=== PATIENT | female | born 1955 | race Caucasian/White ===

== ENCOUNTER → 2018-01-23 | Outpatient (CLI) | payer OTHER ==
[2018-01-23 07:47] LABS: Basophils % (A) 0 %; Eosinophils # (A) 0.1 k/uL (0-0.7); Eosinophils % (A) 3 %; HCT 39.6 % (34.0-46.0); HGB 13.1 gm/dL (11.4-16.0); Lymphocytes # (A) 1.7 k/uL (1.0-4.8); Lymphocytes % (A) 32 %; MCH 30.8 pg (25.0-35.0); MCV 93.5 fL (80.0-100.0); Mean Platelet Volume 6.7; Monocytes # (A) 0.3 k/uL (0-1.0); Monocytes % (A) 5 %; Neutrophils # (A) 3.2 k/uL (1.3-7.7); Neutrophils % (A) 59 %; Platelet Count 218 k/uL (150-450); RBC 4.24 m/uL (3.80-5.40); RDW 12.3 % (11.5-15.5); WBC 5.4 k/uL (3.8-10.6)
[2018-01-23 08:03] LABS: ALT 22 U/L (9-52); AST 18 U/L (14-36); Albumin 3.9 g/dL (3.5-5.0); Alkaline Phosphatase 63 U/L (38-126); Anion Gap 8 mmol/L; Blood Urea Nitrogen 13 mg/dL (7-17); Calcium 9.1 mg/dL (8.4-10.2); Carbon Dioxide 30 mmol/L (22-30); Chloride 105 mmol/L (98-107); Cholesterol 203 mg/dL (<200); Creatine Kinase 84 U/L (30-135); Glucose 96 mg/dL (74-99); HDL Cholesterol 53 mg/dL (40-60); LDL Cholesterol,Calculated 131 mg/dL (0-99); Magnesium 2.2 mg/dL (1.6-2.3); Potassium 4.2 mmol/L (3.5-5.1); Sodium 143 mmol/L (137-145); Total Bilirubin 0.3 mg/dL (0.2-1.3); Total Protein 6.1 g/dL (6.3-8.2); Triglycerides 94 mg/dL (<150)
--- NOTE | 2018-01-23 10:45 | CT ---
EXAMINATION TYPE: CT chest w con DATE OF EXAM: 01/23/2018 COMPARISON: NONE HISTORY: COPD with acute exacerbation CT DLP: 122.10 mGycm, Automated exposure control for dose reduction was used. CONTRAST: Performed injected with 100 ml mL of Isovue 300. TECHNIQUE: Axial images were obtained at 5 mm thick sections. Reconstructed images are reviewed on [employer] computer in the coronal plane. FINDINGS: Portion of the thyroid visualized is normal. There is some vague groundglass opacity within the mid upper left lung field. Series 4 image 19. Diff use emphysematous changes are evident. Suspicious masses are not identified. No enlarged mediastinal or hilar adenopathy is evident. The ascending aorta diameter at the level o f the main pulmonary artery is 2.7 cm. The main pulmonary artery diameter at the bifurcation is 2.[address] sections are obtained through the upper abdomen. Abdomen is essentially unremarkable. IMPRESSIONS: 1. COPD.
[2018-01-23 16:12] LABS: Iron Saturation 28.28 (12.00-45.00)
== END | disposition home or self-care (01) ==
LOC: RADCTMAIN 06:55
PROVIDERS: ATTEND Nurse Practitioner Family
DX: J44.9 Chronic obstructive pulmonary disease, unspecified (principal); Z00.00 Encounter for general adult medical examination without abnormal findings; G47.62 Sleep related leg cramps; E78.5 Hyperlipidemia, unspecified
CPT/HCPCS: 80061; 80053; 82607; 82550; 83540; 83550; 83735; 84443; 85025; 82306; 71260; 36415; Q9967

== ENCOUNTER → 2018-09-24 | Outpatient (CLI) | payer MEDICARE ==
[2018-09-24 10:45] LABS: Basophils % (A) 0 %; Eosinophils # (A) 0.1 k/uL (0-0.7); Eosinophils % (A) 2 %; HCT 42.1 % (34.0-46.0); HGB 13.8 gm/dL (11.4-16.0); Lymphocytes # (A) 1.8 k/uL (1.0-4.8); Lymphocytes % (A) 30 %; MCH 31.3 pg (25.0-35.0); MCHC 32.8 g/dL (31.0-37.0); MCV 95.4 fL (80.0-100.0); Mean Platelet Volume 6.4; Monocytes # (A) 0.3 k/uL (0-1.0); Monocytes % (A) 5 %; Neutrophils # (A) 3.5 k/uL (1.3-7.7); Neutrophils % (A) 60 %; Platelet Count 220 k/uL (150-450); RBC 4.41 m/uL (3.80-5.40); RDW 12.2 % (11.5-15.5); WBC 5.8 k/uL (3.8-10.6)
[2018-09-24 16:23] LABS: Albumin 4.4 g/dL (3.80-4.90); Albumin/Globulin Ratio 2.75 (1.20-2.10); Anion Gap 4.8 mmol/L (4.00-12.00); Calcium 9.1 mg/dL (8.7-10.3); Carbon Dioxide 26.2 mmol/L (21.6-31.8); Globulin 1.6 g/dL (2.1-3.7); LDL Cholesterol,Calculated 141.6 mg/dL (0.0-131.0); Potassium 4.3 mmol/L (3.5-5.5); Total Bilirubin 0.3 mg/dL (0.3-1.2); VLDL Calculation 27.4 mg/dL (5.00-40.00)
== END | disposition home or self-care (01) ==
LOC: LABWHC1 09:17
PROVIDERS: ATTEND Family Medicine
DX: E78.5 Hyperlipidemia, unspecified (principal); F34.1 Dysthymic disorder
CPT/HCPCS: 36415; 80053; 80061; 84443; 85025

== ENCOUNTER → 2018-09-27 | Outpatient (CLI) | payer MEDICARE ==
--- NOTE | 2018-09-27 14:09 | XR ---
Left wrist HISTORY: Swelling left wrist, pain 4 views of the left wrist There is joint space loss, subchondral sclerosis and marginal spurring at the carpometacarpal joint o f the first digit. Bone mineralization is otherwise somewhat reduced. Alignment is maintained. Puncta te ossific density present distal to the ulnar styloid is of questionable clinical significance. Ther e is negative ulnar variance. Some joint space loss present at the radial ulnar joint distally, there is remodeling of the radiocarpal joint. IMPRESSION: Osteoarthritis.
== END | disposition home or self-care (01) ==
LOC: RADXRMAIN 12:27
PROVIDERS: ATTEND Family Medicine
DX: M19.032 Primary osteoarthritis, left wrist (principal)

== ENCOUNTER → 2019-01-31 | Outpatient (CLI) | payer MEDICARE, OTHER ==
[2019-01-31 08:42] LABS: Basophils % (A) 0 %; Eosinophils # (A) 0.1 k/uL (0-0.7); Eosinophils % (A) 2 %; HGB 12.8 gm/dL (11.4-16.0); Lymphocytes # (A) 1.8 k/uL (1.0-4.8); Lymphocytes % (A) 35 %; MCH 31.4 pg (25.0-35.0); MCHC 31.2 g/dL (31.0-37.0); MCV 100.5 fL (80.0-100.0); Mean Platelet Volume 6.4; Monocytes # (A) 0.3 k/uL (0-1.0); Monocytes % (A) 6 %; Neutrophils # (A) 2.8 k/uL (1.3-7.7); Neutrophils % (A) 55 %; Platelet Count 217 k/uL (150-450); RBC 4.08 m/uL (3.80-5.40); RDW 12.4 % (11.5-15.5)
[2019-01-31 08:51] LABS: Albumin 4.1 g/dL (3.5-5.0); Potassium 4.6 mmol/L (3.5-5.1); Total Bilirubin 0.4 mg/dL (0.2-1.3); Total Protein 6.4 g/dL (6.3-8.2); Uric Acid 3.5 mg/dL (3.7-7.4)
--- NOTE | 2019-01-31 11:23 | CT ---
EXAMINATION TYPE: CT sinus wo con DATE OF EXAM: 01/31/2019 COMPARISON: None HISTORY: Chronic sinusitis CT DLP: 603.0 mGycm CONTRAST: 0 mL of Isovue 300 The paranasal sinuses are examined in the axial plane at 2 mm thick sections. Reconstructed images i n the coronal plane were obtained. There is opacification of the right maxillary sinus. Ethmoidectomies been performed. No significant mucosal thickening is evident within the ethmoid regions. The sphenoid sinuses are clear. The front al sinuses are clear. The septum is evaluated. There is septal deviation to the right. The ostiomeatal units are patent. There is been prior bilateral uncinectomies IMPRESSIONS: 1. Opacification of the right maxillary sinus.
--- NOTE | 2019-01-31 11:34 | CT ---
EXAMINATION TYPE: CT cervical spine wo con DATE OF EXAM: 01/31/2019 COMPARISON: None HISTORY: Sore, stiff neck CT DLP: 289 mGycm CONTRAST: None CT of the cervical spine is performed in the axial plane at 2 mm thick sections. Reconstructed image s in the coronal, and sagittal plane are reviewed on the computer. No acute fractures are evident. There is a scoliosis present which can be positional. There is mild narrowing of the disc height C4-5 C5-6. Some endplate changes are present at C5 inferior endplate. Uncovertebral joint hypertrophy is present C5-6 on the left causing moderate foraminal stenosis. Vertebral body heights are preserved. No spinal canal stenosis is evident IMPRESSIONS: 1. Uncovertebral joint hypertrophy C5-6 with moderate left foraminal stenosis. 2. Mild degenerative disc changes C4-5, C5-6.
== END | disposition home or self-care (01) ==
LOC: RADCTMAIN 07:58
PROVIDERS: ATTEND Otolaryngology
DX: J34.89 Other specified disorders of nose and nasal sinuses (principal); J32.9 Chronic sinusitis, unspecified; M48.02 Spinal stenosis, cervical region; M50.321 Other cervical disc degeneration at C4-C5 level
CPT/HCPCS: 70486; 72125; 80053; 80061; 82550; 84443; 84550; 85025

== ENCOUNTER → 2019-09-20 | Outpatient (CLI) | payer MEDICARE, OTHER ==
--- NOTE | 2019-09-20 14:09 | CTL ---
EXAMINATION TYPE: CT Low Dose Lung DATE OF EXAM ORDERED: 09/20/2019 COMPARISON: None HISTORY: . Low Dose CT Lung Screening CT DLP: 88.[address] CTDI: 2.53 mGy IV CONTRAST USED: None. SCREENING VISIT: First visit COMPARISON: None. TECHNIQUE: Low dose computed tomography scan was performed through the chest at 1 millimeter thick se ctions and reconstructed images in the coronal plane at [address] DIAGNOSTIC QUALITY: Satisfactory FINDINGS: LUNG NODULES: Not presentLeft lung: no nodules identified.Right lung: no nodules identified. LUNGS: COPD: Severity: None Fibrosis: Severity:None Lymph nodes: None Other findings: None RIGHT PLEURAL SPACE: Effusion: None Calcification: None Thickening: None Pneumothorax: None LEFT PLEURAL SPACE: Effusion: None Calcification: None Thickening: None Pneumothorax: None HEART: Heart Size: Mildly enlarged Coronary calcification: Mild Pericardial effusion: None OTHER FINDINGS: Upper abdomen: No significant abnormality Bony thorax: Degenerative changes Supraclavicular region: No significant abnormalityOther: No significant abnormalityI IMPRESSION: Negative FOLLOW UP CT CHEST RECOMMENDATION: Follow-up screening in one year. Smoking cessation advised CT LUNG RAD: LUNG RAD CATEGORY category 1 negative
== END | disposition home or self-care (01) ==
LOC: RADCTMAIN 13:35
PROVIDERS: ATTEND Family Medicine
DX: Z12.2 Encounter for screening for malignant neoplasm of respiratory organs (principal); F17.210 Nicotine dependence, cigarettes, uncomplicated

== ENCOUNTER → 2022-07-01 | Outpatient (CLI) | payer MEDICARE, OTHER ==
--- NOTE | 2022-07-01 11:17 | BD ---
EXAMINATION TYPE: Axial Bone Density DATE OF EXAM: 07/01/2022 COMPARISON: FIRST DEXA AT [facility] CLINICAL HISTORY: 66 years year old Female. ICD-10 CODE: N951, M899 DISORDER OF BONE Height: 63.5IN Weight: 116 FRAX RISK QUESTIONS: Secondary Osteoporosis: Current Tobacco Use: YES RISK FACTORS HISTORY OF: Family History of Osteoporosis: YES Active: YES Postmenopausal woman: YES MEDICATIONS: Additional Medications: CHOLESTEROL MED, ANXIETY MED, VITAMIN D Additional History: EXAM MEASUREMENTS: Bone mineral densitometry was performed using the [employer]. Bone mineral density as measured about the Lumbar spine is: ----- L1-L4(G/cm2): 0.848 T Score Values are as follows: ----- L1: -3.2 ----- L2: -3.8 ----- L3: -2.6 ----- L4: -2.1 ----- L1-L4: -2.8 FIRST DEXA AT [facility] Bone mineral density about the R hip (g/cm2): 0.613 Bone mineral density about the L hip (g/cm2): 0.602 T Score values are as follows: -----R Neck: -2.6 -----L Neck: -2.4 -----R Total: -3.1 -----L Total: -3.2 FIRST DEXA AT [facility] FRAX%s: The graph provided illustrates a 13.1% chance for a major osteoporotic fx and a 4.7% chance f or the hips probability for fx in 10 years time. IMPRESSION: Osteoporosis (T Score less than -2.5). There is increased fracture risk and therapy is usually indicated based on age. Re-Screen 1-2 years. NOTE: T-SCORE=SD OF THE YOUNG ADULT MEAN.
[2022-07-01 18:25] LABS: Basophils # (A) 0.03 X 10*3/uL (0.00-0.10); Basophils % (A) 0.5 %; Eosinophils # (A) 0.07 X 10*3/uL (0.04-0.35); Eosinophils % (A) 1.3 %; HCT 40.4 % (37.2-46.3); HGB 13.1 g/dL (12.0-15.0); Immature Grans, Automated 0.4 %; Lymphocytes # (A) 1.67 X 10*3/uL (0.90-5.00); Lymphocytes % (A) 30.2 %; MCH 31.3 pg (27.0-32.0); MCHC 32.4 g/dL (32.0-37.0); MCV 96.4 fL (80.0-97.0); Mean Platelet Volume 9.7 fL (9.5-12.2); Monocytes # (A) 0.39 X 10*3/uL (0.20-1.00); Monocytes % (A) 7.1 %; NRBC Per 100 WBC 0 /100 WBCS (0.0-0.0); Neutrophils # (A) 3.35 X 10*3/uL (1.80-7.70); Neutrophils % (A) 60.5 %; Platelet Count 234 X 10*3/uL (140-440); RBC 4.19 X 10*6/uL (4.10-5.20); RDW 12.9 % (11.5-14.5); WBC 5.53 X 10*3/uL (4.50-10.00)
[2022-07-01 19:02] LABS: ALT 15 U/L (8-44); AST 20 U/L (13-35); African American GFR (CKD) 78.3 (60.0-200.0); Albumin 4.5 g/dL (3.8-4.9); Alkaline Phosphatase 70 U/L (41-126); BUN/Creat Ratio 8.67 Ratio (12.00-20.00); Blood Urea Nitrogen 7.8 mg/dL (9.0-27.0); Calcium 9.2 mg/dL (8.7-10.3); Carbon Dioxide 25.3 mmol/L (20.0-27.5); Chloride 104 mmol/L (96-109); Chol/HDL Ratio 3.15 Ratio; Globulin 1.8 g/dL (1.6-3.3); Glucose 90 mg/dL (70-110); LDL Cholesterol,Calculated 104.6 mg/dL (0.0-131.0); Non-African American GFR(CKD) 67.6 (60.0-200.0); Potassium 4.1 mmol/L (3.5-5.5); Sodium 140 mmol/L (135-145); Total Protein 6.3 g/dL (6.2-8.2); VLDL Calculation 14.78 mg/dL (5.00-40.00)
== END | disposition home or self-care (01) ==
LOC: RADMAMWWP 10:00
PROVIDERS: ATTEND Family Medicine
DX: Z00.00 Encounter for general adult medical examination without abnormal findings (principal); Z12.31 Encounter for screening mammogram for malignant neoplasm of breast; N95.1 Menopausal and female climacteric states; E78.5 Hyperlipidemia, unspecified; M81.0 Age-related osteoporosis without current pathological fracture; E53.8 Deficiency of other specified B group vitamins; E55.9 Vitamin D deficiency, unspecified; M89.9 Disorder of bone, unspecified
CPT/HCPCS: 77063; 77067; 77080; 80053; 80061; 82306; 82607; 84443; 85025

== ENCOUNTER → 2022-07-14 | Outpatient (CLI) | payer MEDICARE, OTHER ==
--- NOTE | 2022-07-14 11:30 | MM ---
Reason for Exam: Additional evaluation requested from abnormal screening. Last screening mammogram was performed less than 1 month ago. Patient History: Menarche at age 17. First Full-Term at age 19. Postmenopausal. Cyst Aspiration on the Right side. Cyst Aspiration on the Right side. 05/08/1998, Benign Excisional Biopsy on the right side. Risk Values: Debby 5 year model risk: 1.3%. NCI Lifetime model risk: 5.1%. Prior Study Comparison: 07/13/2004 Bilateral Special View Mammogram, [facility]. 05/29/2017 Bilateral MG screening mammo w CAD - 2, [facility]. 02/07/2019 Bilateral MG screening mammo w CAD - 2, [facility]. 07/01/2022 Bilateral MG 3D screening mammo w/cad, [facility]. Tissue Density: Left: The breast tissue is heterogeneously dense. This may lower the sensitivity of mammography. Findings: Analyzed By CAD. On magnification views, the far posterior lateral grouped and regional microcalcifications appear very faint and punctate. No suspicious morphology is seen. Six-month follow-up recommended. Overall Assessment: Probably benign, BI-RAD 3 Management: Diagnostic Mammogram of the left breast in 6 months. 1. Patient should continue monthly self breast exams. 2. A clinical breast exam by your physician is recommended on an annual basis. 3. This exam should not preclude additional follow-up of suspicious palpable abnormalities. Electronically signed and approved by: Vinh Garcia M.D. Radiologist
== END | disposition home or self-care (01) ==
LOC: RADMAMWWP 10:21
PROVIDERS: ATTEND Family Medicine
DX: R92.8 Other abnormal and inconclusive findings on diagnostic imaging of breast (principal)
CPT/HCPCS: 77065; G0279; 77061

== ENCOUNTER → 2022-11-21 | Outpatient (CLI) | payer MEDICARE, OTHER ==
--- NOTE | 2022-11-21 09:51 | CT ---
EXAMINATION TYPE: CT sinus wo con CT DLP: 659.19 mGycm, Automated exposure control for dose reduction was used. DATE OF EXAM: 11/21/2022 9:37 AM COMPARISON: 01/31/2019. CLINICAL INDICATION:Female, 66 years old with history of J32.9; TECHNIQUE: Multiple thin axial images were obtained through the paranasal sinuses without the use of IV contrast. Additional coronal and sagittal reformatted images were submitted for evaluation. Contrast used: none Oral contrast used: none FINDINGS: Frontal sinuses: Hypoplastic bilaterally and aerated. Frontal Recess: Clear Modified Charisma-Davis Score: Right 0 = 0% Opacified, Left 0 = 0% Opacified Maxillary Sinuses: Normally developed. The right sphenoid sinus again demonstrates near complete opac ification with some bony osteitis changes, not significantly changed from prior. Antrostomy changes a re felt to be present bilaterally. The right is opacified. Modified Charisma-Michael Score: Right 4 = 76-99% Opacified, Left 1 = 1-25% Opacified Maxillary Infundibula(OM[facility]): Opacified on the right, No M[place]geta cells identified. Modified Charisma-Michael Score: Right 2 = Completely obstructed, Left 0 = Completely patent Ethmoid sinuses: Normally developed. Ethmoidal notch: Protected and abutting the lateral lamina. Modified [place]-Davis Score: Anterior Right 1 = 1-25% Opacified, Left 1 = 1-25% Opacified Posterior Right 0 = 0% Opacified, Left 0 = 0% Opacified Sphenoid sinuses: Normally developed and aerated. There is sellar sphenoid sinus pneumatization witho ut evidence of dehiscence. No dehiscence of carotid canal. No evidence of optic nerve dehiscence wit hin the sphenoid sinus. No evidence of Onodi cells. Sphenoethmoidal recesses: Clear. Modified [place]-Michael Score: Right 0 = 0% Opacified, Left 1 = 1-25% Opacified. Nasal septum: Within normal limits. Nasal Turbinates: Within normal limits. Mastoid air cells & middle ears: The air cells are clear. The middle ears are grossly unremarkable. Modified Soft tissues & Brain: Partially seen without gross abnormality. Globes are intact. Other: Cribriform plate demonstrates symmetric Keros classification type 2 cribriform plate. No evidence of bony dehiscence of skull base. Lamina papyracea is intact without evidence of remote orbital fracture or orbital prolapse into the e thmoid sinus. IMPRESSION: 1. Similar chronic paranasal sinus disease most pronounced in the right maxillary sinus with near com plete opacification and chronic osteitis changes. 2. Right ostiomeatal unit is opacified, the left ostiomeatal unit, frontonasal and sphenoethmoidal re cesses are clear. 3. Opacification burden of on the Modified [place]-Davis scoring system.
== END | disposition home or self-care (01) ==
LOC: RADCTMAIN 09:15
PROVIDERS: ATTEND Otolaryngology
DX: J32.9 Chronic sinusitis, unspecified (principal); J34.89 Other specified disorders of nose and nasal sinuses
CPT/HCPCS: 70486

== ENCOUNTER → 2023-01-17 | Outpatient (CLI) | payer MEDICARE, OTHER ==
--- NOTE | 2023-01-17 09:44 | CTL ---
EXAMINATION TYPE: CT Low Dose Lung DATE OF EXAM ORDERED: 01/17/2023 COMPARISON: 09/20/2019 HISTORY: . Low Dose CT Lung Screening CT DLP: 53.[address] CTDI: 1.30 mGy IV CONTRAST USED: None. SCREENING VISIT: First visit COMPARISON: None. TECHNIQUE: Low dose computed tomography scan was performed through the chest at 1 millimeter thick se ctions and reconstructed images in the coronal plane at [address] DIAGNOSTIC QUALITY: Satisfactory FINDINGS: LUNG NODULES: Not presentLeft lung: no nodules identified.Right lung: no nodules identified. LUNGS: COPD: Severity: Mild . Upper lobe emphysematous changes seen. Fibrosis: Severity:None Lymph nodes: None Other findings: Stable small area of focal chronic postinflammatory change left upper lobe. RIGHT PLEURAL SPACE: Effusion: None Calcification: None Thickening: None Pneumothorax: None LEFT PLEURAL SPACE: Effusion: None Calcification: None Thickening: None Pneumothorax: None HEART: Heart Size: Mildly enlarged Coronary calcification: Mild Pericardial effusion: None OTHER FINDINGS: Upper abdomen: No significant abnormality Bony thorax: Degenerative changes Supraclavicular region: No significant abnormalityOther: No significant abnormalityI IMPRESSION: No discrete pulmonary nodules seen. COPD. FOLLOW UP CT CHEST RECOMMENDATION: Follow-up screening in one year CT LUNG RAD: LUNG RAD CATEGORY 1 negative
[2023-01-17 14:35] LABS: Basophils # (A) 0.05 X 10*3/uL (0.00-0.10); Basophils % (A) 0.7 %; Eosinophils # (A) 0.24 X 10*3/uL (0.04-0.35); Eosinophils % (A) 3.5 %; HCT 40.7 % (37.2-46.3); HGB 13.1 g/dL (12.0-15.0); Immature Grans, Automated 0.3 %; Lymphocytes # (A) 1.95 X 10*3/uL (0.90-5.00); Lymphocytes % (A) 28.8 %; MCH 30.9 pg (27.0-32.0); MCHC 32.2 g/dL (32.0-37.0); Mean Platelet Volume 9.5 fL (9.5-12.2); Monocytes # (A) 0.42 X 10*3/uL (0.20-1.00); Monocytes % (A) 6.2 %; NRBC Per 100 WBC 0 /100 WBCS (0.0-0.0); Neutrophils % (A) 60.5 %; Platelet Count 227 X 10*3/uL (140-440); RBC 4.24 X 10*6/uL (4.10-5.20); RDW 12.9 % (11.5-14.5); WBC 6.78 X 10*3/uL (4.50-10.00)
[2023-01-17 15:15] LABS: ALT 21 U/L (8-44); AST 26 U/L (13-35); African American GFR (CKD) 66.1 (60.0-200.0); Albumin 4.6 g/dL (3.8-4.9); Albumin/Globulin Ratio 2.29 (1.60-3.17); Alkaline Phosphatase 79 U/L (41-126); BUN/Creat Ratio 7.81 Ratio (12.00-20.00); Calcium 9.1 mg/dL (8.7-10.3); Carbon Dioxide 25.3 mmol/L (20.0-27.5); Chloride 104 mmol/L (96-109); Chol/HDL Ratio 3.06 Ratio; Glucose 109 mg/dL (70-110); LDL Cholesterol,Calculated 92.9 mg/dL (0.0-131.0); Potassium 4.6 mmol/L (3.5-5.5); Sodium 140 mmol/L (135-145); Total Protein 6.6 g/dL (6.2-8.2); VLDL Calculation 14.78 mg/dL (5.00-40.00)
== END | disposition home or self-care (01) ==
LOC: RADCTMAIN 09:15
PROVIDERS: ATTEND Family Medicine
DX: Z12.2 Encounter for screening for malignant neoplasm of respiratory organs (principal); J44.9 Chronic obstructive pulmonary disease, unspecified; E78.5 Hyperlipidemia, unspecified; E53.8 Deficiency of other specified B group vitamins; E55.9 Vitamin D deficiency, unspecified; Z87.891 Personal history of nicotine dependence
CPT/HCPCS: 71271; 80053; 80061; 82306; 82607; 84443; 85025

== ENCOUNTER 2023-01-31 11:11 | Day surgery (SDC) | payer MEDICARE, OTHER ==
[2023-01-27 09:58] VITALS: BMI 19.7
[~2023-01-31 11:11] MED LIST: LACTATED RINGERS 1,000 ML IV SCH; LIDOCAINE 1% (10MG/ML) FOR IV START INTRADERMA PRN
[2023-01-31 11:33] VITALS: TEMP 98.2
[2023-01-31] MEDS ORDERED: PROPOFOL 10 MG/ML 20 ML VIAL IV ONE (11:53)
--- NOTE | 2023-01-31 12:14 | P.PCN ---
Date of Procedure: 01/31/23 Procedure(s) Performed: BRIEF HISTORY: Patient is a 67-year-old pleasant white female scheduled for an elective colonoscopy as a part of screening for colon cancer/positive cologuard. Her last colonoscopy was more than 5 years PROCEDURE PERFORMED: Colonoscopy with snare polypectomy. PREOPERATIVE DIAGNOSIS: Screening for colon cancer/positive cologuard. IV sedation per Anesthesia. PROCEDURE: After informed consent was obtained, the patient, was brought into the endoscopy unit. IV sedation was administered by Anesthesia under continuous monitoring. Digital rectal examination was normal. Initially the Olympus CF-160 flexible video colonoscope was then inserted in the rectum, gradually advanced into the cecum without any difficulty. Careful examination was performed as the scope was gradually being withdrawn. Ileocecal valve and the appendiceal orifice were visualized and appeared normal. Prep was poor and several areas of the colon. Mucosa of the cecum, ascending colon, transverse colon, descending colon, normal. In the sigmoid colon there was a 5 limited polyp that was removed by snare polypectomy. Rest sigmoid colon, and rectum appeared normal. Retroflexion was performed in the rectum and no lesions were seen. The patient tolerated the procedure well. IMPRESSION: 5 mm sigmoid: Polyp status post polypectomy Poor prep in several areas of the colon RECOMMENDATIONS: Findings of this examination were discussed with the patient as well as a family. She was advised to follow with the biopsy results. If the biopsy reveals adenoma she can have a repeat colonoscopy in 5 years..
[2023-01-31 12:21] VITALS: RESP 16
[2023-01-31 12:38] VITALS: BP 144/77; PULSE 75
== END 2023-01-31 13:02 | disposition home or self-care (01) ==
LOC: ORWHC2ENDO 11:11
PROVIDERS: ATTEND Internal Medicine Gastroenterology
DX: D12.5 Benign neoplasm of sigmoid colon (principal); E78.5 Hyperlipidemia, unspecified; J44.9 Chronic obstructive pulmonary disease, unspecified; M19.90 Unspecified osteoarthritis, unspecified site; Z79.51 Long term (current) use of inhaled steroids; Z79.1 Long term (current) use of non-steroidal anti-inflammatories (NSAID); Z79.899 Other long term (current) drug therapy
CPT/HCPCS: 88305; 45385; J2704

== ENCOUNTER → 2024-02-19 | Outpatient (CLI) | payer MEDICARE ==
--- NOTE | 2024-02-21 13:12 | MM ---
Reason for Exam: Screening (asymptomatic). Last mammogram was performed 1 year(s) and 7 month(s) ago. Patient History: Menarche at age 17. First Full-Term at age 19. Postmenopausal. Cyst Aspiration on the Right side. Cyst Aspiration on the Right side. 05/08/1998, Benign Excisional Biopsy on the right side. Risk Values: Debby 5 year model risk: 1.3%. NCI Lifetime model risk: 4.7%. Prior Study Comparison: 02/07/2019 Bilateral MG screening mammo w CAD - 2, [facility]. 07/01/2022 Bilateral MG 3D screening mammo w/cad, [facility]. 07/14/2022 Left MG 3D work up w/cad , [facility]. Tissue Density: The breasts are heterogeneously dense, which may obscure small masses. Findings: Right breast: There is no suspicious group of microcalcifications or new suspicious mass. Left breast: Increasing calcifications within the left breast lateral aspect on CC view upper aspect on MLO view. Mild depth approximately 7.2 cm CC view and 5.9 cm nipple on MLO view. Overall Assessment: Incomplete: need additional imaging evaluation, BI-RAD 0 Management: Screening Mammogram of the left breast. [facility] will attempt to contact patient to return for supplemental views and ultrasound if indicated. Patient should continue monthly self-breast exams. A clinical breast exam by your physician is recommended on an annual basis. This exam should not preclude additional follow-up of suspicious palpable abnormalities. Note on Debby scores and lifetime risk: 1. A Debby score greater than 3% is considered moderate risk. If this is the case, consider specialist referral to assess eligibility for a risk reducing agent. 2. If overall lifetime risk for the development of breast cancer is 20% or higher, the patient may qualify for future screening with alternating mammogram and breast MRI. Electronically signed and approved by: Bryson Townsend DO
== END | disposition home or self-care (01) ==
LOC: RADMAMWWP 07:39
PROVIDERS: ATTEND Family Medicine
DX: Z12.31 Encounter for screening mammogram for malignant neoplasm of breast (principal); Z78.0 Asymptomatic menopausal state
CPT/HCPCS: 77063; 77067

== ENCOUNTER → 2024-02-19 | Outpatient (CLI) | payer MEDICARE ==
--- NOTE | 2024-02-20 08:01 | CTL ---
EXAMINATION TYPE: CT Low Dose Lung DATE OF EXAM: 02/19/2024 10:07 AM CLINICAL INDICATION:Female, 68 years old with history of Z12.2 CURRENT SMOKE, F17.210 NICOTINE DEPEND ENCE; h/o tobacco use x45 years 1ppd , history of tobacco use. COMPARISON: 01/09/2023 TECHNIQUE: Multiple axial non-contrast scans were obtained from approximately the lung apices through the upper abdomen. Coronal and sagittal reformatted images were obtained. Low dose technique was uti lized. CT DLP: 49.8 mGycm, Automated exposure control for dose reduction was used. CT Contrast: Contrast used: None Oral contrast used: None FINDINGS: ======== Lack of intravenous contrast and low dose technique limits the evaluation of the vascular and soft ti ssue structures. LUNGS: No evidence of pulmonary fibrosis. No evidence of focal consolidation, pneumothorax or pleural effusion. Nodules: RUL: None. RML: None. RLL: None. THAIS: 7 * Reticulation/scarring in the left upper lung is not significantly changed from prior on 01/09/2023 and has increased density compared to 2019. Series 4 image 72. * 4 mm pulmonary nodule series 4 image 189 * 4 mm nodule image 106. LLL: None. AIRWAY: Suspected mucous plugging right upper lobe and image 80 HEART: Size within normal limits. Mild to moderate coronary artery calcifications. MEDIASTINUM: No gross evidence of adenopathy. VASCULATURE: Atherosclerotic calcifications are present throughout the aorta and its branches. MUSCULOSKELETAL: Mild disc degeneration changes are present throughout the thoracolumbar spine. SOFT TISSUES/LYMPH NODES: Unremarkable. LOWER NECK: No significant findings. UPPER ABDOMEN: Nonobstructing left 3 mm calculus. IMPRESSION: 1. Few scattered 4 mm pulmonary nodules. Additionally left upper lobe focal reticulation not signifi cantly changed from immediate prior and 2022 however is increased from 2019. Continued surveillance r ecommended. 2. Mild emphysema. 3. Mild to moderate coronary artery calcifications. 4. Nonobstructing left [address] LUNG RAD AND CT CHEST RECOMMENDATION: Lung-Rad 2 Benign Appearance or Behavior: Continue annual sc reening with LDCT in 12 months. S Modifier (other clinically significant findings): None Recommend smoking cessation (if current smoker), or continuation of smoking cessation (if prior smoke r). Annual screening for lung cancer with low-dose computed tomography is recommended in adults ages 55 to 77 years who have a 30 pack-year smoking history and currently smoke or have quit within the pa st 15 years. Screening should be discontinued once a person has not smoked for 15 years or develops a health problem that substantially limits life expectancy or the ability or willingness to have curat home lung surgery. Lung rads 2021 [email or web address]
== END | disposition home or self-care (01) ==
LOC: RADCTMAIN 07:41
PROVIDERS: ATTEND Family Medicine
DX: Z12.2 Encounter for screening for malignant neoplasm of respiratory organs (principal); J43.9 Emphysema, unspecified; I25.10 Atherosclerotic heart disease of native coronary artery without angina pectoris; N20.0 Calculus of kidney; F17.210 Nicotine dependence, cigarettes, uncomplicated
CPT/HCPCS: 71271